=== PATIENT | male | born 1935 | race Caucasian/White ===

== ENCOUNTER 2024-04-09 20:25 | Observation (INO) | payer OTHER, SELFPAY ==
[2024-04-09 16:03] VITALS: BP 104/58
--- NOTE | 2024-04-09 17:51 | ED.GENMED ---
History of Present Illness
General
Chief Complaint: Catheter/Tube Problem
Time Seen by Provider: 04/09/24 16:47
History of Present Illness
History of Present Illness:
88-year-old male with history of throat cancer and dysphagia status post GJ tube presents for evaluation of a clogged GJ tube. This was placed in [facility]. Was able to receive his morning feedings and hydration but this afternoon
was unable to pass any fluid through the tube
Review of Systems
Review of Systems
Allergies reviewed?: Yes
All Other Systems: ROS reviewed and negative except as documented in HPI and ROS
Phy Exam
Physical Exam
Physical Exam:
GEN: Well appearing, NAD, WDWN
HEENT: Oral mucosa moist, no scleral icterus
Cardiac: Regular rate
Lung: No respiratory distress, no tachypnea
Abdomen: Left upper quadrant feeding tube insertion site is excoriated, no purulent discharge
MSK: No gross deformity or injuries
Skin: Good color, no pallor or jaundice, no rashes
Neuro: AO x3, moves all extremities freely
Psych: Calm, cooperative
Course
Orders/Labs/Results
Orders:
Orders
04/09/24 17:53
0.9% Sodium Chloride 1000 ml [Nss] 1,000 ml IV 100 mls/hr
04/09/24 18:32
Basic Metabolic Panel Urgent
Complete Blood Count/With Diff Urgent
04/09/24 19:33
Admit/Transfer Patient As Directed
Co-Sign Provider:
Level of Care: Observation services
Assign to:: Medical/Surgical
Physician / Group: grazyna hoskins
Diagnosis: clogged GJ tube
PRN Pain Medication Management As Directed
May give lesser potent ordered pain med per pt: No
preference::
Protocol:: Medication orders for pain may NOT be administered in
a manner that defers to patient preference. Follow
all order instructions as written.
Contact provider if ordering parameters for pain need
to be adjusted.
04/09/24 19:34
Code Status As Directed
Resuscitation Status: Limited DNR
Limited DNR: -No intubation
04/09/24 20:22
Erythromycin (Ilotycin) [Erythromycin 0.5% Ophthalmic Ointment] See Dose Instructions OPHTH NOW STA
04/09/24 20:35
0.9% Sodium Chloride 1000 ml [Nss] 1,000 ml IV 80 mls/hr
Bisacodyl [Dulcolax] 10 mg RECTAL [id number] PRN
04/09/24 20:35
IRAD CONSULT Routine
Consulting Provider: Galdino Ramos
Was physician already notified: Yes
Reason for Consult/Procedure: clogged GJ tube
Acknowledgement that appropriate orders are entered: Yes
WOUND/OSTOMY CONSULT Routine
Reason for Consult: GJ tube excoriated/clotted
Activity As Directed
Activity Level: As Tolerated
Pneumatic Compression Sleeves As Directed
Type: Knee high
Vital Signs As Directed
Frequency: Per unit guidelines
DX Deep Vein Thrombosis Video Routine
04/09/24 22:00
Erythromycin (Ilotycin) [Erythromycin 0.5% Ophthalmic Ointment] See Dose Instructions OPHTH QID
04/10/24 Breakfast
NPO
Allow oral meds: No
Allow clear liquids: No
BMP [Basic Metabolic Panel] IN AM
Abnormal Lab Results
04/09/24
18:32
RBC 4.05 L 10^6/uL
(4.70-6.10)
Hgb 11.9 L g/dL
(13.0-18.0)
Hct 36.6 L %
(39.0-52.0)
MCHC 32.5 L g/dL
(33.0-37.0)
RDW 17.3 H %
(11.5-14.5)
MPV 11.1 H fL
(7.4-10.4)
Lymphocytes % 19.9 L %
(20.5-51.1)
Monocytes % 10.4 H %
(1.7-9.3)
Carbon Dioxide 38 H mmol/L
(22-30)
BUN 48 H mg/dl
(9-20)
04/09/24 18:32
04/09/24 18:32
Vital Signs
Initial and Last Documented VS:
Initial Vital Signs
Temp Pulse Resp BP Pulse Ox
98.0 F 77 16 104/58 96
04/09/24 16:03 04/09/24 16:03 04/09/24 16:03 04/09/24 16:03 04/09/24 16:03
Last Documented Vital Signs
Temp Pulse Resp BP Pulse Ox
97.9 F 74 20 141/74 100
04/09/24 20:45 04/09/24 20:45 04/09/24 20:45 04/09/24 20:45 04/09/24 20:45
MDM/Problems Addressed
MDM/Problems Addressed:
I was unable to clear the tube obstruction despite attempting to pass a rigid filiform, as a result we will have to admit the patient for interventional radiology evaluation tomorrow for tube replacement
*Critical Care Note
Total Time (30-74mins, 75-104mins- exclusive of procedures): Not Applicable
ED Attending Note
-
Portions of this chart may have been created with voice recognition software.� Occasional wrong word or��sound alike� substitutions may have occurred due to the inherent limitations of voice recognition software.
Discharge Plan
Departure
Patient Disposition: Admit
Date of Disposition: 04/09/24
Time of Disposition: 19:07
Admit to: Med/Surg
Presentation/result/management discussed w/ accepting MD/DO: Hospitalist
Discharge Problem:
Malfunction of jejunostomy tube
Interventions
Interventions:
*Risk Screen - Suicide Last Done: 04/09/24 16:41
*General Assessment Last Done: 04/09/24 16:41
*Neglect/Abuse Screening Last Done: 04/09/24 16:41
*ED COVID-19 Vaccine History Last Done: 04/09/24 21:16
*Nursing Disposition Last Done: 04/09/24 20:36
WZ-Herflt-Ocvmmhomta Assessment Last Done: 04/09/24 16:41
Discharge Date and Time
Discharge Date/Time: 04/09/24 20:37
[2024-04-09] MEDS: NSS 1000 IV ×2 (18:28→20:35)
[2024-04-09 18:39] LABS: % Basophils 0.8 % (0-2); % Eosinophils 1.9 % (0-6); % Immature Granulocytes 0.2 % (0-0.5); % Lymphocytes 19.9 % (20.5-51.1); % Monocytes 10.4 % (1.7-9.3); % Neutrophils 66.8 % (42.2-75.2); Absolute Basophils 0.1 10^3/uL (0-0.2); Absolute Eosinophils 0.1 10^3/uL (0-0.7); Absolute Lymphocytes 1.2 10^3/uL (1.2-3.4); Absolute Monocytes 0.6 10^3/uL (0.1-0.6); Hematocrit 36.6 % (39.0-52.0); Hemoglobin 11.9 g/dL (13.0-18.0); Mean Corp Hgb Conc. 32.5 g/dL (33.0-37.0); Mean Corpuscular Hgb 29.4 pg (27.0-31.0); Mean Corpuscular Volume 90.4 fL (80.0-94.0); Mean Platelet Volume 11.1 fL (7.4-10.4); Nucleated Red Blood Cells % 0 % (-); Platelet Count 158 10^3/uL (130-400); Red Blood Cell Count 4.05 10^6/uL (4.70-6.10); Red Cell Dist. Width 17.3 % (11.5-14.5); White Blood Cell Count 5.9 10^3/uL (4.8-10.8)
[2024-04-09 18:55] LABS: Blood Urea Nitrogen 48 mg/dl (9-20); Calcium 9.6 mg/dl (8.4-10.2); Carbon Dioxide 38 mmol/L (22-30); Chloride 98 mmol/L (98-107); Glucose 95 mg/dl (70-99); Potassium 4.8 mmol/L (3.5-5.1); Sodium 140 mmol/L (135-145); eGFR > 60.00
--- NOTE | 2024-04-09 19:12 | HPS.HSE ---
Addendum entered and electronically signed by Tisha Sarkar DO 04/09/24 20:17:
The patient is seen and examined, and I have reviewed the patient with Tita, an I agree with her history and physical, assessment and plan of care. The patient has a clogged G-J tube. History of aspiration, cannot take any orals due to esophageal
cancer s/p XRT (cancer is in remission), however patient is on hospice due to sequela of treatment.
VSS/AF
GJ tube without signs of infection, there is small amount of excoriation around
CV RRR, no m/r/g
Lungs CTA bl no w/r/r
Abd soft, NT/ND
Updated med list:
Allergies
Allergy/AdvReac Type Severity Reaction Status Date / Time
.red dye Allergy Unknown Uncoded 04/09/24 16:06
Home Medications
famotidine 20 mg tablet (Pepcid) 20 mg PO DAILY 04/09/24
finasteride 5 mg tablet 5 mg PO DAILY 04/09/24
ipratropium 0.5 mg-albuterol 3 mg (2.5 mg base)/3 mL nebulization soln 3 ml inhalation R Q4HPRN PRN sob 04/09/24
levothyroxine 50 mcg tablet 50 mcg PO DAILY 04/09/24
midodrine 2.5 mg tablet 2.5 mg PO BIDPRN PRN low blood pressure 04/09/24
polyethylene glycol 3350 17 gram oral powder packet (Miralax) 17 g PO DAILY 04/09/24
sennosides 8.6 mg tablet (senna) 8.6 mg PO BID 04/09/24
IR is consulted for further management, de-clotting/procedure for G-J tube clot
Will get Ostomy consultation as well
Original Note:
Family Physician
-
Family Physician: Tonia Herrera
Chief Complaint
-
clogged GJ tube
History of Present Illness
88-year-old male with history of throat cancer and dysphagia status post GJ tube presents for evaluation of a clogged GJ tube. patient is hospice patient. patient get feed overnight. this morning hospice nurse as unable to flush the tube. patient
denied abdominal pain, distention, n,v,d. denied SCOTT,dizzy, fever, chills, chest pain, sob. denied dysuria or hematuria.
IR consulted. received fluids in ER. admitting for further management.
Medical History
Past Medical History
Past Medical History: Reports Other
Additional Past Medical History:
throat cancer
dysphagia
Past Surgical History: Reports Other
Additional Past Surgical History:
mitral valve replacement
CABG
cardiac ablation
Social History
Tobacco: Former Smoker
Alcohol: None
Drug: None
Personal:
Living: With Family
Family History
Family History: Not pertinent
Allergies / Home Medications
Allergies reflects when Allergies were last updated in [facility].
Home Medications with original date entered in [facility]
Allergy/Medication List:
Allergies
Allergy/AdvReac Type Severity Reaction Status Date / Time
.red dye Allergy Unknown Uncoded 04/09/24 16:06
Home Medications
levothyroxine 50 mcg tablet 50 mcg PO DAILY 04/09/24
Review of Systems
-
Constitutional: Reports No Symptoms
EENT: Reports No Symptoms
Respiratory: Reports No Symptoms
Cardiac: Reports No Symptoms
Abdomen/GI: Reports Other (clogged GJ tube)
: Reports No Symptoms
Musculoskeletal: Reports No Symptoms
Skin: Reports No Symptoms
Neurological: Reports No Symptoms
Endocrine: Reports No Symptoms
Hematologic/Lymphatic: Reports No Symptoms
Psych: Reports No Symptoms
Physical Exam
Vital Signs
Vital Signs
Temp Pulse Resp BP Pulse Ox
98.0 F 77 16 104/58 96
04/09/24 16:03 04/09/24 16:03 04/09/24 16:03 04/09/24 16:03 04/09/24 16:03
Physical Exam
General: Well Developed, Well Nourished and No Apparent Distress
HEENT: NormoCephalic, Moist mucous membranes and Atraumatic
Respiratory: Clear
Cardiac: S1/S2 and Regular Rhythm; No Murmur or Rub
GI: Soft, Non Tender, Non Distended and Normal Bowel Sounds; No Organomegaly
Rectal: Deferred by Provider
Musculoskeletal: No Clubbing, No Cyanosis and No Edema
Skin: No Rash
Neuro: AO x 3 and Nonfocal/grossly intact
Psych: Calm
Laboratory Results
-
04/09/24 18:32
04/09/24 18:32
Data Reviewed
-
Lab Data: Labs Reviewed by me
Impression/Plan
-
#clogged GJ tube/hxt of throat ca/dysphagia
-IR consulted, G tube to gravity
# Anemia likely from chronic disease
-Hemoglobin 11.9
- no Active bleeding
-Continue monitor
#hxt of CABG
#hxt of mitral valve repair
#hxt of BPH
-hold finasteride due to clogged GJ tube
#hypothyroidism
-levothyroxine hold due to GJ clogged
#hypotension
-BP on soft side
-fluids continued
-hold midodrine due to clogged GJ tube
#DVT prophylaxis
-scd
#CODE status
-CPR but no intubation
patient under [facility].
[2024-04-09 20:45] VITALS: BP 141/74; BMI 19.4
[2024-04-09] MEDS: REFRESH EYE DROPS (PF) 1 DROPS OPHTH (21:31)
--- NOTE | 2024-04-09 22:04 | PTCARENOTE ---
Pt admitted to rm 337-1 and walked from stretcher to bed x1 w/ steady gait. Pt aaox3, VSS, and no c/o pain. GJ tube w/ drainage bag in LUQ, area cleansed w/ sterile saline and drain sponge placed. Blanchable red sacrum, silicone border foam applied.
Pt given a urinal and instructed to ring call ball to ambulate. Pt and oriented to room, call lugo within reach, and plan of care ongoing.
[2024-04-09 23:00] VITALS: BP 122/59
[2024-04-10] MEDS: NSS 1000 IV (06:29)
[2024-04-10 07:00] VITALS: BP 151/83
--- NOTE | 2024-04-10 08:38 | W.PN.HOSP.TC ---
Today's Communication/Plan
-
Discharge today
Assessment / Plan
Assessment / Plan
#Clogged GJ tube/hxt of throat ca/dysphagia
Changed by IR on 04/10/24
Discharge today
#Esophageal cancer status post radiation
Patient currently followed by [facility] hospice at home
#Anemia likely from chronic disease
Stable
#hxt of CABG
#hxt of mitral valve repair
#hxt of BPH
Resume finasteride upon dc
#hypothyroidism
Resume levothyroxine upon dc
#hypotension
Resume midodrine upon dc
CODE status - CPR but no intubation
Updated at bedside 04/10
Physical Exam
General: Appears chronically ill, no acute distress
HEENT: Normocephalic, Atraumatic, EOMI, MMM
Respiratory: Clear to Auscultation bilaterally
Cardiac: Normal S1/S2, Regular Rate and Rhythm
GI: Soft, Nontender, Nondistended, Normal Bowel Sounds
GJ tube in tact, with some granulation tissue noted
Extremities: No Clubbing, Cyanosis, or Edema
Neuro: Nonfocal/Grossly Intact
Psych: Calm, Cooperative
Derm: No Visible lesions
Anticipated Discharge: Today
Subjective/Interval History
-
Date of Service: April 10, 2024
Patient had his GJ tube exchanged by IR today. He denies pain. No fever, no vomiting.
Objective Data
-
Labs:
Laboratory Results
04/10/24
06:00
Sodium Pending
Potassium Pending
Chloride Pending
Carbon Dioxide Pending
BUN Pending
Creatinine Pending
Glucose Pending
Calcium Pending
Vital Signs:
Vital Signs
Temp Pulse Resp BP Pulse Ox
97.4 F 73 18 151/83 99
04/10/24 07:00 04/10/24 07:00 04/10/24 07:00 04/10/24 07:00 04/10/24 07:00
I&O
04/09/24 04/10/24 04/11/24
06:59 06:59 06:59
Intake Total 0 / 0
Output Total 300 / 300
Balance -300 / -300
--- NOTE | 2024-04-10 10:04 | W.DCSUMMARY ---
Discharge Summary
Discharge Data
Date of Admission: 04/09/24
Date of Discharge: 04/10/24
-
Pending Results: No
Hospital Course
Discharge diagnosis:
Clogged gastrojejunostomy tube status post exchange
Esophageal cancer status post radiation on home hospice
Anemia of chronic disease
History of mitral valve repair
Benign prostatic hypertrophy
Hypothyroidism
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
Consults: Interventional radiology
Hospital course:
88-year-old male with a past medical history of esophageal cancer status post radiation on home hospice, anemia of chronic disease, BPH, hypothyroidism, and chronic hypotension on midodrine was admitted for a clogged gastrojejunostomy tube. Patient
was seen in conjunction with interventional radiology. He had his GJ tube exchanged on 04/10/2024. He did well postprocedure.
Patient is discharged home, he can resume hospice services for his esophageal cancer. He can also resume his home tube feed regimen. He needs to follow-up with the hospice team in 2-3 days.
Disposition: Home with hospice
Discharge planning: Required 33 minutes
Discharge Plan
-
Patient Disposition: Home (Routine Discharge)
Discharge Diagnosis/Procedures: Clogged G-J tube, esophageal cancer on hospice
Condition: Serious
Diet: Tube feeding
Additional Diets: Resume previous tube feeding regimen
Activity: As tolerated
Other Services: Hospice
Referrals:
Tonia Herrera MD [Family Provider] - in one week
Prescriptions:
Continued
levothyroxine 50 mcg tablet
50 mcg PO DAILY
sennosides [senna] 8.6 mg Tablet
8.6 mg PO BID
ipratropium-albuterol 0.5 mg-3 mg(2.5 mg base)/3 mL Solution For Nebulization
3 ml INHALATION R Q4HPRN PRN (Reason: sob)
polyethylene glycol 3350 [Miralax] 17 gram Powder In Packet
17 g PO DAILY
famotidine [Pepcid] 20 mg Tablet
20 mg PO DAILY
midodrine 2.5 mg Tablet
2.5 mg PO BIDPRN PRN (Reason: low blood pressure)
finasteride 5 mg Tablet
5 mg PO DAILY
Refresh Optive 0.5-0.9 % Drops
1 drp LEFT EYE BIDPRN PRN (Reason: dry eyes )
Discharge Orders:
Discharge Patient (As Directed); Ordered 04/10/24
Ordered By: Alcides Medel
Discharge Date and Time
Discharge Date/Time: 04/10/24 10:59
Print Language: [place]
[2024-04-10 10:30] VITALS: BP 138/72
--- NOTE | 2024-04-10 11:14 | CM ---
Met with pt and his at bedside
Admitted for clogged peg tube - peg replaced by IR
Pt lives with his at [facility] in independent living - currently receiving hospice services with [facility]
Needs some assist with adl's - independent, ambulates with rolling walker
DME - hospital bed, commode, feeding supplies for PEG, oxygen(2L - prn)
SNF - [facility] in past
HH - [facility] in past
Has ride at d/c with
PCP - Dr Tonia Herrera
Pharm - [facility]
Discussed MALAVE/Obs status
Plan - anticipate home with family support and [facility]
== END 2024-04-10 10:59 | disposition hospice, home (50) ==
LOC: 3 WEST ACU 20:25
PROVIDERS: Physician Assistant; ADMITTING PHYSICIAN Internal Medicine; ATTENDING PHYSICIAN Family Medicine; EMERGENCY PHYSICIAN Emergency Medicine; FAMILY PHYSICIAN Internal Medicine Geriatric Medicine
DX: K94.23 Gastrostomy malfunction (principal); R13.10 Dysphagia, unspecified; Y84.8 Other medical procedures as the cause of abnormal reaction of the patient, or of later complication, without mention of misadventure at the time of the procedure; Y73.2 Prosthetic and other implants, materials and accessory gastroenterology and urology devices associated with adverse incidents; Y92.9 Unspecified place or not applicable; N40.0 Benign prostatic hyperplasia without lower urinary tract symptoms; E03.9 Hypothyroidism, unspecified; D63.8 Anemia in other chronic diseases classified elsewhere; I95.89 Other hypotension; Z85.818 Personal history of malignant neoplasm of other sites of lip, oral cavity, and pharynx; Z66 Do not resuscitate; Z92.3 Personal history of irradiation; Z79.890 Hormone replacement therapy; Z95.1 Presence of aortocoronary bypass graft; Z87.891 Personal history of nicotine dependence; Z95.2 Presence of prosthetic heart valve; Z91.02 Food additives allergy status
CPT/HCPCS: 49452; 80048; 85025; 99285; C1769; G0378